=== PATIENT | male | born 1960 | race Caucasian/White ===

== ENCOUNTER 2018-06-04 10:11 | Emergency (ER) | payer OTHER, MEDICARE ==
[~2018-06-04] VITALS: Ht 182.9 cm; Wt 129.3 kg
[~2018-06-04 10:11] MED LIST: ACETAMINOPHEN-1 EAC1 PO; ALBUTEROL SUL5 MG/ML IH; AZITHROMYCIN 2250 MG PO; CEFUROXIME500 MG PO; DILTIAZEM 24HR120 M1 PO; LIPITOR10 MG PO; MOTRIN 600 MG600 M1 PO; NEURONTIN 300300 M1 PO; NOHOMEMEDICATIONS; NORCO 5-325 TA1 EACH PO; NORFLEX100 MG PO; PERCOCET 5-3251 EACH PO; PREDNISONE 10 M10 M1 PO; PREDNISONE 10 M10 MG PO; PROTONIX40 M1 PO; RESTORIL22.5 MG PO; STIOLTO RESPIMAT4 GM; STIOLTO RESPIMAT4 GM IH; XARELTO10 MG PO
[2018-06-04 10:48] LABS: ABSOLUTE BASOPHILS 0.1 thou/uL (0.0-0.2); ABSOLUTE EOSINOPHILS 0.2 thou/uL (0.0-0.7); ABSOLUTE LYMPHOCYTES 2.7 thou/uL (0.8-5.3); ABSOLUTE MONOCYTES 0.8 thou/uL (0.0-1.2); ABSOLUTE NEUTROPHILS 8.1 thou/uL (1.6-8.1); BASOPHILS 0.7 %; EOSINOPHILS 1.6 %; HEMATOCRIT 43.4 % (42.0-52.0); HEMOGLOBIN 14.4 gm/dL (14.0-18.0); LYMPHOCYTES 22.5 %; MCH 30.6 pg (26.0-34.0); MCHC 33.2 g/dL (28.0-37.0); MONOCYTES 6.8 %; MPV 7.1 fl. (7.2-11.1); NUCLEATED RBCS 0 /100WBC; PLATELET COUNT* 360 thou/uL (150-400); POLYS 68.4 %; RBC 4.72 mil/uL (4.50-6.00); RDW-CV 13.8 % (10.5-14.5); WBC 11.9 thou/uL (4.0-11.0)
[2018-06-04 10:52] LABS: CREATININE 0.8 mg/dL (0.6-1.3)
[2018-06-04 10:56] LABS: ALBUMIN 3.3 g/dL (3.4-5.0); TOTAL BILIRUBIN 0.1 mg/dL (<0.1-1.0); TOTAL PROTEIN 7.3 g/dL (6.4-8.2)
[2018-06-04] MEDS ORDERED: ONDANSETRON HCL4 M2 PO (12:05)
[2018-06-04] MEDS ORDERED: CLEOCIN HCL300 MG PO (12:05)
[2018-06-04 12:16] VITALS: BP 154/74
== END 2018-06-04 12:17 | disposition home or self-care (01) ==
LOC: M.ERS 10:11
PROVIDERS: Nurse Practitioner Family
DX: K11.21 Acute sialoadenitis (principal); J42 Unspecified chronic bronchitis; I48.91 Unspecified atrial fibrillation; Z88.0 Allergy status to penicillin